=== PATIENT | female | born 1970 | race Caucasian/White ===

== ENCOUNTER → 2022-07-27 | Outpatient (REF) | payer OTHER ==
[~2022-07-27] MED LIST: ALBU8.5H INH; ESOM40CA35 PO
== END ==
LOC: M SMT 16:44
PROVIDERS: ATTEND Urology
DX: N20.0 Calculus of kidney (principal)

== ENCOUNTER 2022-08-05 06:26 | Day surgery (SDC) | payer OTHER ==
[~2022-08-05] VITALS: Ht 162.6 cm; Wt 93.4 kg
[~2022-08-05 06:26] MED LIST changes: +ceFAZolin SOD 2 GM in IV 1 EA IV ONE
[2022-08-05] MEDS ORDERED: LR 1,000 ML IV SCH (07:15)
[2022-08-05] MEDS ORDERED: ONDANSETRON 4MG 2ML VIAL As Ordered ONE (07:52)
[2022-08-05] MEDS ORDERED: propofoL 200 MG/20 ML VIAL As Ordered ONE (07:52)
[2022-08-05] MEDS ORDERED: MIDAZOLAM INJ 2MG/2ML VIAL As Ordered ONE (07:53)
[2022-08-05] MEDS ORDERED: fentaNYL 100 MCG/2 ML INJECTION As Ordered ONE (07:53)
[2022-08-05] MEDS ORDERED: LIDOCAINE 2% 100MG/5ML SDV (FOR ANES.) As Ordered ONE (07:53)
[2022-08-05] MEDS ORDERED: KETOROLAC 60MG 2ML VIAL As Ordered ONE (08:41)
[2022-08-05] MEDS ORDERED: HYDR-3713 PO (08:47)
== END 2022-08-05 09:55 | disposition home or self-care (01) ==
LOC: M SDC 06:26 → EDUNIT# 08:30 → M SDC 09:55
PROVIDERS: ATTEND Urology
DX: N20.0 Calculus of kidney (principal); K21.9 Gastro-esophageal reflux disease without esophagitis; J45.909 Unspecified asthma, uncomplicated; Z79.51 Long term (current) use of inhaled steroids; Z79.899 Other long term (current) drug therapy; Z88.5 Allergy status to narcotic agent; Z91.018 Allergy to other foods; Z88.8 Allergy status to other drugs, medicaments and biological substances
CPT/HCPCS: 50590; 74018; J0690; J1100; J1885; J2250; J2405; J3010